=== PATIENT | male | born 1960 | race Caucasian/White ===

== ENCOUNTER 2016-10-29 12:20 | Emergency (ER) | payer BC ==
[~2016-10-29 12:20] MED LIST: ACETAMINOPHEN PR; AMOXICILLIN PO; COLACE PO; FERRO-TIME325 MG PO; FLONASE 0.05% N16 G1; IRON SUPPLEMENT1 TAB; LEVAQUIN250 MG PO; MULTIPLE VITAMI1 T11 PO; MULTIVITAMINS1 EAC2 PO; NO MEDICATIONS; RHINOCORT7 GM 200 D; SAW PALMETTO450 MG PO; VITAMIN D31000 UNI1 PO
[2017-02-26] MEDS ORDERED: AMLODIPINE-BEN1 EACH PO (11:12)
[2017-02-26] MEDS ORDERED: NIACIN500 M3 (11:13)
== END 2016-10-29 12:41 | disposition home or self-care (01) ==
LOC: CED 12:20
DX: I10 Essential (primary) hypertension (principal)
CPT/HCPCS: 99282

== ENCOUNTER → 2016-11-13 | Outpatient (CLI) | payer BC ==
[~2016-11-13] MED LIST changes: +AMLODIPINE-BEN1 EACH PO; +NIACIN500 M3
--- NOTE | ~2016-11-13 | US5 ---
[facility] A Service of [facility] RADIOLOGY TEXT RESULTS PATIENT: MERNA BEASLEY LOCATION: US : 60 UNIT #: [id number] AGE: [address]: СВЕТЛАНА HENNESSY APRN SEX: M ORDER DR: [id number] [facility] [address] [place], [place] [address] [id number] O MR#: [id number] Acc #: [id number] NAME: MERNA BEASLEY : 1960 SEX: M STUDY DATE/TIME: 11/13/2016 9:52 UNIT: CGUS ROOM: STUDY DESCRIPTION: US Abdominal Complete Attending Physician: Светлана Hennessy Np Referring Physician: Светлана Hennessy Np Ordering Physician: Светлана Hennessy Np Primary Care Physician: Светлана Hennessy Np MEDICAL IMAGING REPORT This report is preliminary unless electronic signature is present EXAM Complete abdominal ultrasound. DATE 11/13/2016 HISTORY Physician's history states elevated liver enzymes. Hernia repair. Hypertension. COMPARISON CT abdomen and pelvis without and with contrast, 01/22/2012. FINDINGS Portions of the pancreas are obscured by bowel gas. The visualized pancreas appears normal. Abdominal aortic caliber is within normal limits measuring up to 1.8 cm proximally. Color and spectral Doppler flow was documented throughout the abdominal aorta. There is a mildly coarsened hepatic echotexture which is nonspecific but could represent changes of mild hepatic steatosis. No focal liver lesions are identified. IVC demonstrates normal color flow. Spleen size is normal, 13.1 cm in length. Left kidney measures 11.3 cm and right kidney measures 10.8 cm in length without focal cortical lesion, shadowing stone, or hydronephrosis. Portal vein is patent. Common bile duct caliber is normal, 4 mm. No intrahepatic biliary ductal dilation is seen. Gallbladder is free of shadowing stone, sludge, wall thickening, or pericholecystic fluid. Common bile duct caliber is normal, 4 mm. No intrahepatic biliary ductal dilation is seen. IMPRESSION 1. Coarsened hepatic echotexture is nonspecific and may represent changes of hepatic steatosis. No focal liver lesions are seen. [facility] A Service of [facility] RADIOLOGY TEXT RESULTS PATIENT: MERNA BEASLEY LOCATION: [facility] #: [id number] : [birth year] UNIT #: [id number] AGE: [address]: СВЕТЛАНА HENNESSY APRN SEX: M ORDER DR: 2. Remainder of the examination is within normal limits. Dictated by... Shahla Hidalgo M.D. THIS IS AN ELECTRONICALLY VERIFIED REPORT Shahla Hidalgo M.D. at 11/15/2016 7:14 AM [facility]/matthew TD: 11/13/2016 12:40 JOB #: [id number] MEDICAL IMAGING REPORT Page 1 of 1 COPY
== END | disposition home or self-care (01) ==
LOC: CGUS 09:31
DX: R74.8 Abnormal levels of other serum enzymes (principal)
CPT/HCPCS: 76700

== ENCOUNTER → 2017-02-26 | Day surgery (SDC) | payer BC ==
--- NOTE | ~2017-02-26 | OR ---
Unit #: [id number] #: [id number] Patient: MERNA BEASLEY [id number] [address] [address] [id number] O MR#: [id number] NAME: MERNA BEASLEY ROOM: Date of Procedure: 02/26/2017 Admission Date: 02/26/2017 Surgeon: Pepe Goodman M.D. : 1960 Attending Physician: Pepe Goodman M.D. Primary Care Physician: Светлана Garrett Np OPERATIVE REPORT JOB NOTE: CC: СВЕТЛАНА GARRETT NP POSTOPERATIVE DIAGNOSIS Screening colonoscopy. POSTOPERATIVE DIAGNOSIS Screening colonoscopy. PROCEDURES PERFORMED 1. Colonoscopy to cecum. 2. Polypectomy with cold biopsy forceps of proximal ascending colon with hemoclip placement. ANESTHESIA Monitored anesthesia care. FINDINGS The patient was found to have mild internal hemorrhoids. A 3 mm polyp was excised in the proximal ascending colon completely with the cold biopsy forceps with hemoclip placement on the site for hemostasis. Few scattered sigmoid diverticula were present. SPECIMENS Sent to pathology. COMPLICATIONS None apparent. CONDITION The patient tolerated the procedure well. INDICATIONS FOR PROCEDURE The patient is a 56-year-old white male, who presents at this time for screening colonoscopy. DESCRIPTION OF PROCEDURE After obtaining informed consent, the patient was brought to the endoscopy suite and after adequate monitored anesthesia care, had the colonoscope placed through the anus and slowly advanced to the level of cecum without difficulty with lumen always in view. The cecum was normal as was the ileocecal valve. Just beyond the cecum, there was a small 3 mm polyp found. It was excised completely with the cold biopsy forceps. A Unit #: [id number] #: [id number] Patient: MERNA BEASLEY hemoclip was placed to ensure good hemostasis and mucosal approximation. The remaining portion of the ascending colon, hepatic flexure, transverse colon, splenic flexure, and descending colon were normal. There were few shallow diverticula scattered through the sigmoid colon. No other abnormalities were seen. The rectosigmoid and rectum were all within normal limits. On retroflexing in the rectum to the anorectal junction, the patient was found to have some mild internal hemorrhoids. The scope was removed without difficulty. The patient tolerated the procedure well and went from the endoscopy suite to recovery area in stable condition. RECOMMENDATIONS Diverticular sheet given. High-fiber diet, lots of liquids, tucks or wipes p.r.n. Call Friday for pathology. Dictated by... Mahin Whittington/butch TD: 02/27/2017 06:54 JOB #: [id number] CC: [facility] OPERATIVE REPORT Page 1 of 1 X Pepe Goodman MD X PROCEDURE OPERATIVE NOTE
== END | disposition home or self-care (01) ==
LOC: COPS 09:00
DX: Z12.11 Encounter for screening for malignant neoplasm of colon (principal); D12.2 Benign neoplasm of ascending colon; K57.30 Diverticulosis of large intestine without perforation or abscess without bleeding; K64.8 Other hemorrhoids; I10 Essential (primary) hypertension; D64.9 Anemia, unspecified; Z79.899 Other long term (current) drug therapy
CPT/HCPCS: 88305; J2250